=== PATIENT | male | born 1995 | race Caucasian/White ===

== ENCOUNTER 2025-08-13 13:36 | Emergency (ER) | payer OTHER, SELFPAY ==
[2025-08-13 13:51] VITALS: BP 165/102; PULSE 112; RESP 16; TEMP 37.2; O2SAT 95
--- NOTE | 2025-08-13 14:23 | ED_ITS ---
HPI - URI/Sore Throat General Chief Complaint: Upper Respiratory Infection Stated Complaint: Upper Respiratory Symptoms Time Seen by Provider: 08/13/25 14:10 Source: patient and RN notes reviewed Mode of arrival: ambulatory Limitations: no limitations History of Present Illness HPI Narrative: 29-year-old male patient presents [facility] complaining of upper respiratory symptoms for approximately 2 days. Patient reports cough, congestion, wheezing, body aches, chills. Patient has any fevers, nausea, vomiting, chest pain, breathing problems, or any other symptoms. Patient has a history asthma, he has been use as your inhaler as needed and says it helps with the symptoms. Patient did get vaccinated for the flu this year. Related Data Home Medications ?Medication ?Instructions ?Recorded ?Confirmed ?Last Taken ?Type allopurinol 300 mg tablet mg 08/13/25 Unknown History epinephrine 0.3 mg/0.3 mL 08/13/25 Unknown History injection, auto-injector (Auvi-Q) Allergies Allergy/AdvReac Type Severity Reaction Status Date / Time Milk Containing Products Allergy Severe Anaphylaxis Verified 08/13/25 14:20 (Dairy) prochlorperazine (From Allergy Intermediate Jittery Verified 08/13/25 14:20 Compazine) Review of Systems Review of Systems: CONSTITUTIONAL: Denies fever, or sweats. Positive body aches and chills EYES: Denies visual changes, redness, or discharge. ENT: Denies rhinorrhea, sore throat, or otalgia. Positive for congestion CARDIOVASCULAR: Denies chest pain, palpitations, or edema. RESPIRATORY: Positive for cough and wheezing. Negative for dyspnea. GASTROINTESTINAL: Denies abdominal pain, nausea, vomiting, or diarrhea. GENITOURINARY: Denies dysuria or hematuria. SKIN: Denies rash or itching. MUSCULOSKELETAL: Denies back pain, joint pain, or myalgia. NEUROLOGIC: Denies headache, numbness, or weakness. PSYCHIATRIC: Denies anxiety or depression. All other systems reviewed are negative, except as documented in HPI. PMFSH Comments At the time of my signature, I reviewed and agree with the nursing past medical, surgical, social, and family history. There is no relevant family history pertinent to the patient complaint. Exam Narrative: GENERAL: This is a well-nourished, well-developed adult, in no apparent distress. They are non ill-appearing, nontoxic appearing. HEAD: normocephalic, atraumatic. EYES: Sclera clear/white. Conjunctiva normal. Vision is grossly intact. Extraocular movements intact EARS: External ears normal, auditory canals clear and without drainage, TMs normal without perforation. Hearing grossly intact. NOSE: External nose normal with no obvious nasal discharge, nasal turbinates erythematous, no rhinorrhea. THROAT: Mucous membranes moist, posterior pharynx erythematous with PND. Uvula midline. NECK: Neck supple, non-tender without lymphadenopathy, masses or thyromegaly. CARDIOVASCULAR: Regular rate and rhythm without murmurs, gallops, or rubs. RESPIRATORY: End-expiratory wheezes heard throughout. Breath sounds equal bilaterally. No rales, or rhonchi. Respiratory rate normal, respiratory effort nonlabored, no respiratory distress SKIN: warm, Dry, intact with no suspicious lesions or rash, good texture and turgor. NEURO: awake, alert, and oriented to person, place and time. There were no obvious focal neurologic abnormalities. EXTREMITIES: No joint tenderness, effusion, or edema noted. BACK: Nontender without deformity. Course Course Level of Care: Express Care Visit Vital Signs Vital signs: Vital Signs Temperature 98.9 F 08/13/25 13:51 Pulse Rate 112 H 08/13/25 13:51 Respiratory Rate 16 08/13/25 13:51 Blood Pressure 165/102 H 08/13/25 13:51 Pulse Oximetry 95 08/13/25 13:51 Temperature 98.9 F 08/13/25 13:51 Pulse Rate 112 H 08/13/25 13:51 Respiratory Rate 16 08/13/25 13:51 Blood Pressure 165/102 H 08/13/25 13:51 Pulse Oximetry 95 08/13/25 13:51 [facility] Narrative Medical decision making narrative: Rapid flu B positive. Patient does have end-expiratory wheezes, patient last use albuterol 4 hours ago, patient says he will do an albuterol treatment when he gets home. Will Send patient home with Tamiflu. Discussed physical exam findings. Advised supportive measures and signs/symptoms to go to the ER. Pt is appropriate for outpt treatment and f/u. Differential Diagnosis Differential Diagnosis: Differential diagnostic considerations for upper respiratory infection include upper respiratory infection, croup, otitis media, sinusitis, viral infection, bronchitis, influenza, pharyngitis, strep, uvulitis. Lab Data [facility] Lab Attestation statement: I personally reviewed the patient's lab results. Critical Care Time Critical Care Time Critical Care Time: No Discharge Plan Discharge Clinical Impression: Influenza Patient Disposition: Home Condition: Stable Instructions: Antibiotic Form, Influenza (ED) Additional Instructions: You should avoid crowds until you are fever free for 24 hours without the use of fever reducing medications, or the symptoms are improved Rest. Drink plenty of fluids. Tylenol and Motrin as needed for pain or fevers. Take Tamiflu as directed. Usual your inhaler as needed for wheezing or shortness of breath. Recommend Flonase spray and Zyrtec (or Claritin/Radha) for sinus pressure/congestion over the counter Cough syrup may cause drowsiness; avoid driving or take it at night time. Follow up with your primary care provider 3-5 days. Go to the ER for worsening symptoms, difficulty breathing not relieved by your albuterol inhaler, unable to talk full sentences, chest pains vomiting, weakness, or any serious concerns Patient Language: Faroese Prescriptions: New oseltamivir [Tamiflu] 75 mg capsule 75 mg PO Q12H 5 Days Qty: 10 0RF No Action allopurinol 300 mg tablet epinephrine [Auvi-Q] 0.3 mg/0.3 mL auto-injector Follow-up/Referrals: Jose Roberto,Satinder Gilbert MD [Primary Care Provider, Unknown] Time of Disposition: 14:18
[2025-08-13 14:32] LABS: EDCOVIDSCREEN Negative (Negative); EDINFLUASCREEN Negative (Negative); EDINFLUBSCREEN Positive (Negative)
== END 2025-08-13 14:30 | disposition home or self-care (01) ==
PROVIDERS: PCP Family Medicine
DX: J11.1 Influenza due to unidentified influenza virus with other respiratory manifestations (principal); Z20.822 Contact with and (suspected) exposure to COVID-19
CPT/HCPCS: 87426; 87804; 99203; G0463